=== PATIENT | male | born 1940 ===

== ENCOUNTER → 2017-12-08 | Outpatient (CLI) | payer MEDICARE | LOC: LAB 12:00 → LAB SHORT 12:00 → LAB FUT 11-30 10:40 | DX: R19.4 Change in bowel habit (principal) | CPT/HCPCS: 87015; 87045; 87046; 87205; 87899 ==

== ENCOUNTER → 2019-04-04 | Outpatient (CLI) | payer MEDICARE ==
[2019-04-04 19:32] LABS: Adenovirus F 40/41 Not Detected (NOT DETECT); Astrovirus Not Detected (NOT DETECT); Campylobacter Sp Not Detected (NOT DETECT); Cryptosporidium Not Detected (NOT DETECT); Cyclospora Cayetanensis Not Detected (NOT DETECT); E. Coli O157 Not Detected (NOT DETECT); Entamoeba Histolytica Not Detected (NOT DETECT); Enteroaggregative E. coli-EAEC Not Detected (NOT DETECT); Enteropathogenic E. coli-EPEC Not Detected (NOT DETECT); Enterotoxigenic E. coli-ETEC Not Detected (NOT DETECT); Giardia Lamblia Not Detected (NOT DETECT); Norovirus GI/GII Not Detected (NOT DETECT); Plesiomonas Shigelloides Not Detected (NOT DETECT); Rotavirus A Not Detected (NOT DETECT); Salmonella Sp Not Detected (NOT DETECT); Sapovirus Not Detected (NOT DETECT); Shiga Toxin-prod E. coli-STEC Not Detected (NOT DETECT); Shigella/Enteroin E. coli-EIEC Not Detected (NOT DETECT); Vibrio Cholerae Not Detected (NOT DETECT); Vibrio Sp Not Detected (NOT DETECT); Yersinia Enterocolitica Not Detected (NOT DETECT)
== END ==
LOC: LAB SHORT 14:34
PROVIDERS: Internal Medicine Gastroenterology
DX: R19.7 Diarrhea, unspecified (principal)
CPT/HCPCS: 0097U

== ENCOUNTER 2019-04-19 08:43 | Day surgery (SDC) | payer MEDICARE ==
[~2019-04-19] VITALS: Ht 167.6 cm; Wt 66.5 kg
[~2019-04-19 08:43] MED LIST: DONEPEZIL HCL10 MG PO; GABA800 PO; INSULANPEN SC; METF500 PO
--- NOTE | 2019-04-19 10:05 | NUR ---
Ambulatory in Day Surgery History, Chart, Medications and Allergies reviewed before start of procedure.Patient confirms NPO status and agrees with scheduled surgery. Patient states colon prep results clear.Lungs clear T/O to Auscultation. Patient States Post-Procedure ride home has been arranged WITH . PT HARD OF HEARING. AT BEDSIDE THROUGHOUT ADMIT TO HELP WITH HEALTH HX
--- NOTE | 2019-04-19 11:17 | NUR ---
04/19/19 1117 Jo Ann Curry History, Chart, Medications and Allergies reviewed before start of procedure. PATIENT CONFIRMS NPO STATUS AND AGREES WITH SCHEDULED PROCEDURE. MONITOR INTACT WITH CONTINUOUS PULSE OXIMETRY AND INTERMITTENT BP. O2 VIA N/C INTACT THROUGHOUT SEDATION/PROCEDURE. 3-LEAD EKG REVIEWED WITH PHYSICIAN PRIOR TO START OF PROCEDURE. PATIENT DETERMINED TO BE ASA APPROPRIATE FOR PROPOFOL SEDATION PRIOR TO START OF PROCEDURE BY DR. ALARCON.N
--- NOTE | 2019-04-19 11:48 | NUR ---
RECIEVED PATIENT FROM ENDO ROOM 1 RECIEVED REPORT FROM WILSON GERONIMO. VSS PATIENT TIRED BUT ARROUSABLE
--- NOTE | 2019-04-19 12:13 | NUR ---
Discharge instructions reviewed with patient. Patient verbalizes understanding. Copy given to patient to take home. Patient States Post-Procedure ride home has been arranged. Discharged via wheelchair to private car for ride home.
== END 2019-04-19 22:56 | disposition home or self-care (01) ==
LOC: ORSCMMR 08:43 → ORD 10:00 → ORSCMMR 22:56
PROVIDERS: Internal Medicine Gastroenterology
PROC: 0DBL8ZX Excision of Transverse Colon, Via Natural or Artificial Opening Endoscopic, Diagnostic (ICD-10-PCS; principal; 2019-04-19 10:00)
PROC: 0DBP8ZX Excision of Rectum, Via Natural or Artificial Opening Endoscopic, Diagnostic (ICD-10-PCS; 2019-04-19 10:00)
PROC: 0DBB8ZX Excision of Ileum, Via Natural or Artificial Opening Endoscopic, Diagnostic (ICD-10-PCS; 2019-04-19 10:00)
PROC: 0DBN8ZX Excision of Sigmoid Colon, Via Natural or Artificial Opening Endoscopic, Diagnostic (ICD-10-PCS; 2019-04-19 10:00)
PROC: 0DBK8ZX Excision of Ascending Colon, Via Natural or Artificial Opening Endoscopic, Diagnostic (ICD-10-PCS; 2019-04-19 10:00)
DX: R19.4 Change in bowel habit (principal); K63.5 Polyp of colon; K64.8 Other hemorrhoids; K57.30 Diverticulosis of large intestine without perforation or abscess without bleeding; E11.9 Type 2 diabetes mellitus without complications; F03.90 Unspecified dementia, unspecified severity, without behavioral disturbance, psychotic disturbance, mood disturbance, and anxiety; Z79.4 Long term (current) use of insulin; Z79.899 Other long term (current) drug therapy
CPT/HCPCS: 82947; 88305; J2704; J7120

== ENCOUNTER 2021-02-28 17:26 | Inpatient (IN) | payer MEDICARE ==
[~2021-02-28] VITALS: Ht 175.3 cm; Wt 61.4 kg
[2021-02-28 17:45] LABS: BASOPHILS PERCENT AUTO 0 % (0-2); EOSINOPHILS PERCENT AUTO 0 % (0-6); Hematocrit 42.3 % (37.0-53.0); Hemoglobin 14.5 g/dL (13.5-17.5); IMMATURE GRAN ABSOLUTE AUTO 0.01 K/mm3 (0.00-0.10); IMMATURE GRAN PERCENT AUTO 0 % (0-1); LYMPHOCYTES ABSOLUTE AUTO 1.35 K/mm3 (0.84-5.20); LYMPHOCYTES PERCENT AUTO 28 % (21-46); MONOCYTES ABSOLUTE AUTO 0.29 K/mm3 (0.16-1.47); MONOCYTES PERCENT AUTO 6 % (4-13); Mean Corpuscular HGB 31.6 pg (26.0-34.0); Mean Corpuscular HGB Conc 34.3 g/dL (31.5-36.5); Mean Corpuscular Volume 92 fL (80-100); Mean Platelet Volume 9.3 fL (9.1-12.4); NEUTROPHILS ABSOLUTE AUTO 3.26 K/mm3 (1.96-9.15); NEUTROPHILS PERCENT AUTO 66 % (41-73); Platelet Count 161 K/mm3 (150-400); RDW Coefficient Variation 12.2 % (11.7-14.2); RDW Standard Deviation 41.8 fL (35.1-46.3); Red Blood Cell Count 4.59 M/mm3 (4.30-5.90); White Blood Cell Count 4.91 K/mm3 (4.00-11.30)
[2021-02-28 17:45] LABS: Chloride (POC) 109 mmol/L (98-108); Glucose (ISTAT POC) 54 mg/dL (70-99); Hemoglobin (POC) 13.9 g/dL (13.5-17.5); Potassium (POC) 4.2 mmol/L (3.5-5.5); Sodium (POC) 142 mmol/L (135-148); Total CO2 (POC) 24 mmol/L (21-32)
[2021-02-28 18:05] LABS: Alanine Aminotransfer (ALT/SGP 34 U/L (12-78); Albumin, Blood 3.2 g/dL (3.4-5.0); Albumin/Globulin Ratio 0.8 (0.8-1.8); Alk Phos 59 U/L (50-136); Anion Gap 8 mmol/L (6-16); Aspartate Aminotrans (AST/SGOT 48 U/L (12-37); Bilirubin, Total 0.5 mg/dL (0.1-1.0); Blood Urea Nitrogen 25 mg/dL (8-24); CO2, Blood 23 mmol/L (21-32); Calcium, Blood 8.4 mg/dL (8.5-10.1); Chloride, Blood 110 mmol/L (98-108); Creatinine, Blood 1.04 mg/dL (0.60-1.20); Globulin, Blood 4.1 g/dL (2.2-4.0); Glomerular Filtration Rate >60 (60-); Glucose, Blood 54 mg/dL (70-99); Potassium, Blood 4.2 mmol/L (3.5-5.5); Sodium, Blood 141 mmol/L (136-145); Total Protein, Blood 7.3 g/dL (6.4-8.2)
[2021-02-28 18:07] LABS: Source, Urine Straight Cath
[2021-02-28 18:10] LABS: Bilirubin, Urine Neg (Neg); Blood, Urine 1+ (Neg); Glucose Qualitative, Urine 3+ (Neg); Ketones, Urine 2+ (Neg); Leukocyte Esterase, Urine Neg (Neg); Nitrite, Urine Neg (Neg); Protein, Urine 2+ (Neg); Urobilinogen, Urine NORM (Normal)
[2021-02-28 18:24] LABS: Appearance, Urine Clear (Clear); Color, Urine Pale Yellow (P-Yellow)
[2021-02-28 18:26] LABS: Amorphous Light (0-Heavy); Bacteria Rare /hpf; Mucus Light (0-Heavy); Squamous Epithelial Cells Rare /hpf (Few); White Blood Cells, Urine 0-2 /hpf (0-5)
[2021-02-28] MEDS ORDERED: QUETIAPINE FUMA25 MG PO (18:51)
[2021-02-28] MEDS ORDERED: HUMALOG100 UNIT/1 SC (18:51)
[2021-02-28] MEDS ORDERED: ZYPREXA2.5 MG PO (18:52)
[2021-02-28] MEDS ORDERED: SEROQUEL50 MG PO (18:56)
[2021-02-28 19:27] LABS: Influenza A, PCR NEGATIVE (NEGATIVE); Influenza B, PCR NEGATIVE (NEGATIVE); Resp Syncytial Virus, PCR NEGATIVE (NEGATIVE)
[2021-02-28 19:31] LABS: SARS-Cov-2 (COVID-19) PCR, MMC POSITIVE (NEGATIVE)
[2021-02-28 20:16] LABS: PCO2 Arterial 34.6 mmHg (35-45); PO2 Arterial 82.9 mmHg (80-100); pH Blood Arterial 7.43 (7.35-7.45)
--- NOTE | 2021-02-28 22:57 | NUR ---
CARE ASSUMPTION ASSUMED CARE OF PATIENT AT 2158. PT UNRESPONSIVE TO VERBAL COMMANDS, RESPONDS TO PAINFUL STIMULI. STIFFENS UP WITH REPOSITIONING. ON 15L NON REBREATHER SATS OVER 95%. BP STABLE. HR NSR 80'S. IN BED SLEEPING AT THIS MOMENT. D5W 1/2NS INFUSING AT 50ML/HR.
[2021-03-01 03:40] LABS: BASOPHILS PERCENT AUTO 0 % (0-2); EOSINOPHILS PERCENT AUTO 0 % (0-6); Hematocrit 42.2 % (37.0-53.0); Hemoglobin 13.9 g/dL (13.5-17.5); IMMATURE GRAN ABSOLUTE AUTO 0.02 K/mm3 (0.00-0.10); IMMATURE GRAN PERCENT AUTO 1 % (0-1); LYMPHOCYTES ABSOLUTE AUTO 0.43 K/mm3 (0.84-5.20); LYMPHOCYTES PERCENT AUTO 12 % (21-46); MONOCYTES PERCENT AUTO 6 % (4-13); Mean Corpuscular HGB 31.1 pg (26.0-34.0); Mean Corpuscular HGB Conc 32.9 g/dL (31.5-36.5); Mean Corpuscular Volume 94 fL (80-100); Mean Platelet Volume 9.4 fL (9.1-12.4); NEUTROPHILS ABSOLUTE AUTO 2.87 K/mm3 (1.96-9.15); NEUTROPHILS PERCENT AUTO 82 % (41-73); Platelet Count 153 K/mm3 (150-400); RDW Coefficient Variation 12.4 % (11.7-14.2); Red Blood Cell Count 4.47 M/mm3 (4.30-5.90); White Blood Cell Count 3.52 K/mm3 (4.00-11.30)
[2021-03-01 04:17] LABS: Alanine Aminotransfer (ALT/SGP 32 U/L (12-78); Albumin/Globulin Ratio 0.9 (0.8-1.8); Alk Phos 57 U/L (50-136); Anion Gap 7 mmol/L (6-16); Aspartate Aminotrans (AST/SGOT 47 U/L (12-37); Bilirubin, Total 0.4 mg/dL (0.1-1.0); Blood Urea Nitrogen 24 mg/dL (8-24); Bun/Creatinine Ratio 25.4 (12.0-20.0); CO2, Blood 27 mmol/L (21-32); Chloride, Blood 108 mmol/L (98-108); Creatinine, Blood 0.95 mg/dL (0.60-1.20); Globulin, Blood 3.3 g/dL (2.2-4.0); Glomerular Filtration Rate >60 (60-); Glucose, Blood 312 mg/dL (70-99); Potassium, Blood 5.4 mmol/L (3.5-5.5); Sodium, Blood 142 mmol/L (136-145); Total Protein, Blood 6.3 g/dL (6.4-8.2)
--- NOTE | 2021-03-01 07:38 | NUR ---
SHIFT SUMMARY PT MENTATION IMPROVED SINCE ADMISSION. INITIALLY UNRESPONSIVE TO VERBAL COMMANDS, ONLY RESPONSIVE TO PHSYICAL STIMULI. STUCK IN BED NOT MOVING BESIDES ARMS. ATTEMPTED TO GET OUT OF BED AT 0650. PT NOT ABLE TO HOLD CONVERSATIONS BUT WITH SPEAK IN GARBLED SENTENCES. HR NSR 100. PT NPO. BP STABLE. ON 12L HIGH JOÃO MAINTAINING SATS OVER 93%. IN BED SLEEPING WITH CALL ALARM AT SIDE
--- NOTE | 2021-03-01 18:45 | NUR ---
END OF SHIFT SUMMARY: PATIENT WAS VERY CONFUSED, TO WHICH WE ORDER ONE TIME DOSE OF SEROQUEL, AND PRN Q4 OLANZAPINE WAS GIVEN TWICE TODAY. AFTER A LARGER AMOUNT OF AGITATION WHILE GIVING THOSE MEDS PATIENT CALMED DOWN, CURRENLTY SLEEPING WITH 5L NC SPO2 AT 94%. STILL NPO AWAITING SWALLOW EVAL. COVERAGE FOR EVENING GLUCOSE GIVEN. WAS AT THE BEDSIDE MOST THE DAY UNSURE IF BETTER OR WORSE. DENIES CHEST PAIN, VERY HARD TO VERBALIZE ANY CONCERNS, MORE THAN Q 2 TURNS PROVIDED. BEDREST RECOMMENDED EXTREMELY WEAK AT THIS TIME. WILL CONTINUE TO MONITOR.
[2021-03-02 03:47] LABS: BASOPHILS PERCENT AUTO 0 % (0-2); EOSINOPHILS PERCENT AUTO 0 % (0-6); Hemoglobin 12.8 g/dL (13.5-17.5); IMMATURE GRAN ABSOLUTE AUTO 0.01 K/mm3 (0.00-0.10); IMMATURE GRAN PERCENT AUTO 0 % (0-1); LYMPHOCYTES ABSOLUTE AUTO 0.45 K/mm3 (0.84-5.20); LYMPHOCYTES PERCENT AUTO 19 % (21-46); MONOCYTES ABSOLUTE AUTO 0.23 K/mm3 (0.16-1.47); MONOCYTES PERCENT AUTO 10 % (4-13); Mean Corpuscular HGB 31.4 pg (26.0-34.0); Mean Corpuscular HGB Conc 33.7 g/dL (31.5-36.5); Mean Corpuscular Volume 93 fL (80-100); Mean Platelet Volume 9.6 fL (9.1-12.4); NEUTROPHILS ABSOLUTE AUTO 1.73 K/mm3 (1.96-9.15); NEUTROPHILS PERCENT AUTO 72 % (41-73); Platelet Count 169 K/mm3 (150-400); RDW Coefficient Variation 12.3 % (11.7-14.2); RDW Standard Deviation 42.6 fL (35.1-46.3); Red Blood Cell Count 4.07 M/mm3 (4.30-5.90); White Blood Cell Count 2.42 K/mm3 (4.00-11.30)
[2021-03-02 04:13] LABS: Alanine Aminotransfer (ALT/SGP 31 U/L (12-78); Albumin, Blood 2.6 g/dL (3.4-5.0); Albumin/Globulin Ratio 0.7 (0.8-1.8); Alk Phos 54 U/L (50-136); Anion Gap 6 mmol/L (6-16); Aspartate Aminotrans (AST/SGOT 36 U/L (12-37); Bilirubin, Total 0.5 mg/dL (0.1-1.0); Blood Urea Nitrogen 39 mg/dL (8-24); Bun/Creatinine Ratio 50.7 (12.0-20.0); CO2, Blood 24 mmol/L (21-32); Calcium, Blood 8.1 mg/dL (8.5-10.1); Chloride, Blood 115 mmol/L (98-108); Creatinine, Blood 0.77 mg/dL (0.60-1.20); Globulin, Blood 3.8 g/dL (2.2-4.0); Glomerular Filtration Rate >60 (60-); Glucose, Blood 341 mg/dL (70-99); Potassium, Blood 4.2 mmol/L (3.5-5.5); Sodium, Blood 145 mmol/L (136-145); Total Protein, Blood 6.4 g/dL (6.4-8.2)
--- NOTE | 2021-03-02 05:09 | NUR ---
SHIFT SUMMARY NO ACUTE EVENTS THIS SHIFT. PT REMAINS CONFUSED AND UNABLE TO COMMUNICATE. WILL MUMBLE RANDOM WORDS AT TIMES. HR NSR. BP STABLE. ON 40L 70% FIO2 AIRVO MAINTAINING SATS OVER 94%. Q2 POSITION CHANGES. WILL RESIST THE Q2 TURNS. INCONTINENT. NEEDS TO BE FREQUENTLY CHANGED. REDNESS ON SACRUM. ASLEEP THROUGHOUT MOST OF NIGHT. IN BED SLEEPING WITH CALL ALARM ON SIDE, WILL CONTINUE TO MONITOR UNTIL REPORT GIVEN TO DAYSHIFT RN
--- NOTE | 2021-03-02 17:58 | NUR ---
UPON INSPECTION OF PATIENT, NOTICED BILATERALY FACIAL LEFT > R INFORMED ONCALL [facility] PROVIDER. DR. Jacky BARAKAT. INFROMED CT ORDERED, PREVIOUS CT FROM 22 NO ACUTE ABNORMALITIES. AIRVO IN PLACE, SHE IS TO INSPECT. UPON INSPECTION FROM DR BARAKAT CANCEL CT, WILL OBSERVE AND MEDICATION REVIEW.
--- NOTE | 2021-03-02 18:19 | NUR ---
END OF SHIFT SUMMARY: PATIENT WAS SLEEPING MOST OF THE DAY, CBGS HAVE BEEN HIGH 200'S TO 300'S, MEDICATING PER EMAR, PATIENT IS ALERT AT TIME BUT DOES NOT MAKE COMPREHENSIBLE SPEECH, IS UNABLE TO FOLLOW COMMANDS, MOVES ALL EXTREMS, MAIL SORTING SUPERVISOR STRENGTH BILATERALLY EQUAL, SINUS RHYTHM NO GAURDING OF THE CHEST, AWAKES TO PAIN AND VERBAL STIMULI. WILL TRACK WITH EYES, WHICH ARE BILATERAL. AIRVO AT 40L AT 65%, SPO2 93-95%. DOES OCCASSIONALLY GET AGITATED, BUT VERY MUCH LESS THAN PRIOR DAY. VERY MINIMAL CHANGE IN FACIAL PRESENTATION [facility] AND [facility], SHE WILL REVIEW MEDICATION. CANCELLED CT, CLEAR CT ON 02/28/2021. WILL CONTINUE TO MONITOR.
--- NOTE | 2021-03-02 18:36 | NUR ---
[facility]CENET HAS BEEN MOVED Q
[2021-03-03 04:12] LABS: BASOPHILS PERCENT AUTO 0 % (0-2); EOSINOPHILS PERCENT AUTO 0 % (0-6); Hematocrit 39.7 % (37.0-53.0); Hemoglobin 13.4 g/dL (13.5-17.5); IMMATURE GRAN ABSOLUTE AUTO 0.01 K/mm3 (0.00-0.10); IMMATURE GRAN PERCENT AUTO 0 % (0-1); LYMPHOCYTES ABSOLUTE AUTO 0.26 K/mm3 (0.84-5.20); LYMPHOCYTES PERCENT AUTO 8 % (21-46); MONOCYTES PERCENT AUTO 6 % (4-13); Mean Corpuscular HGB 31.6 pg (26.0-34.0); Mean Corpuscular HGB Conc 33.8 g/dL (31.5-36.5); Mean Corpuscular Volume 94 fL (80-100); Mean Platelet Volume 9.8 fL (9.1-12.4); NEUTROPHILS ABSOLUTE AUTO 2.99 K/mm3 (1.96-9.15); NEUTROPHILS PERCENT AUTO 86 % (41-73); Platelet Count 187 K/mm3 (150-400); RDW Coefficient Variation 12.5 % (11.7-14.2); RDW Standard Deviation 43.2 fL (35.1-46.3); Red Blood Cell Count 4.24 M/mm3 (4.30-5.90); White Blood Cell Count 3.46 K/mm3 (4.00-11.30)
[2021-03-03 04:33] LABS: Alanine Aminotransfer (ALT/SGP 29 U/L (12-78); Albumin, Blood 2.5 g/dL (3.4-5.0); Albumin/Globulin Ratio 0.7 (0.8-1.8); Alk Phos 54 U/L (50-136); Anion Gap 7 mmol/L (6-16); Aspartate Aminotrans (AST/SGOT 21 U/L (12-37); Bilirubin, Total 0.4 mg/dL (0.1-1.0); Blood Urea Nitrogen 36 mg/dL (8-24); Bun/Creatinine Ratio 48.1 (12.0-20.0); CO2, Blood 22 mmol/L (21-32); Calcium, Blood 8.2 mg/dL (8.5-10.1); Chloride, Blood 120 mmol/L (98-108); Creatinine, Blood 0.75 mg/dL (0.60-1.20); Globulin, Blood 3.7 g/dL (2.2-4.0); Glomerular Filtration Rate >60 (60-); Glucose, Blood 331 mg/dL (70-99); Potassium, Blood 4.2 mmol/L (3.5-5.5); Sodium, Blood 149 mmol/L (136-145); Total Protein, Blood 6.2 g/dL (6.4-8.2)
--- NOTE | 2021-03-03 06:27 | NUR ---
SHIFT SUMMARY PATIENT ALERT AND ORIENTED TO SELF BY NAME ONLY. WILL TRACK AND LOOK AT STAFF BUT DOES NOT COMMUNICATE NEEDS. PATIENT MUMBLES WORDS INCOHERIENTLY AT TIMES. UNABLE TO FOLLOW COMMANDS. PATIENT IS HAVING OCCASIONAL JERKING MOVEMENTS IN BILATERAL UPPER EXTREMITITES. HOSPITALIST AWARE AND NURSE NOTIFY IN ORDERS TO HOLD ANTIPSYCH MEDICATIONS FOR FURTHER EVALUATIONS TO BE MADE BY DAY SHIFT. REMAINS ON AIRVO AT 40L, 65% FIO2 WITH O2 SATURATIONS ABOVE 90%. ALL OTHER VITALS STABLE. BED ALARM IN PLACE FOR PATIENT SAFETY. NO OTHER SIGNIFICANT CHANGES, WILL REPORT TO DAY SHIFT RN.
--- NOTE | 2021-03-03 08:00 | NUR ---
INITIAL ASSESSMENT: Patient is lying in bed with his eyes open, he is able to track staff. He is not following directions. He is non-verbal this AM. With oral care he is grimacing. HRR. LS Dim T/O, biox 87% on 40L 50% FIO2, FIO2 increased to 71%-oxygen saturations improved to 90%. Oral care done. Gag and cough present, pt has a coarse NPC. BT+. PPP. VSS. 1/2 NS started at 100 ml/hr. Patient reposistioned. Bed alarm on for safety. Call light in reach. Will continue to monitor.
--- NOTE | 2021-03-03 10:43 | NUR ---
This morning I called and spoke with patient's Loraine [phone] and granddaughter Karley [phone] (POA). Patient's states that Karley lives with them and provides additional support at home. Patient's Daughter Amara Wyman is also POA [phone]. The family prefers Karley be the main point of contact regarding the patient and his care. Patient was mostly independent prior to admit, but non-verbal. Patient walked independently prior to admit and does not own any DME. There are stairs to the enterance of the home. The patient does not drive anymore and patient's , daughter, or granddaughter help with transportation. There is no preference for home health services or [facility] facility. Although, patient's will prefer the patient to return home. I did ask the patient's about the possibility of memory care and she states she would decline that as well, she prefers the patient to remain in their home and that he has lots of support there. She states patient ate independently until he fell ill within the past week, and she or her granddaughter Karley would help feed him.
--- NOTE | 2021-03-03 16:17 | NUR ---
Update: Patient is lying in bed awake. VSS. Dr Porter ordered an MRI of the heat W/O contrast, plan to do this around 1730. Bed alarm on for safety. Call light in reach. Will continue to monitor.
--- NOTE | 2021-03-03 16:32 | NUR ---
Case Conference Note Spoke with Pt's Primary RN Liz and discussed case. Pt requiring significant oxygen support and currently requiring AIRVO. Attempts to wean Pt down to high flow NC unsuccessful at this time. Will continue attempts as appropriate. Pt is less verbally responsive and MD has ordered MRI. Speech Therapy also has been ordered. Called and spoke with Pt's granddaughter Rima ([phone]). According to notes Rima is main customer contact sales associate and is Pt and Pt's spouse's primary caregiver. Rima and Pt's daughter are POA according to notes. Spoke with Rima and provided update on plan of care, including significant O2 support and plan for MRI. Gentle education on disease process of dementia and the importance of planning for the future. Rima reports educating her self and preparing for the future of Pt's dementia and the possibility of needing hospice at somepoint. Offered therapeutic listening and answered questions. Rima states family is hoping for the best but has a plan for the worse. Rima expresses appreciation and reports no other concerns at this time. Palliative Care will remain available for supportive and therapeutic visits.
--- NOTE | 2021-03-03 18:48 | NUR ---
Summary: Patient is here with COVID PNA. He has been awkake, non-verbal, and not following commands. He has been very stiff with repositioning and making some involuntary jerking movements with head and BUE. All psych meds are on hold at this time. Patient is not able to follow commands thus he has been NPO until speech therapy can come and evaluate him. He is on the AIRVO heated high flow NC 40L FIO2 has gone between 55% and 70% T/O the shift. He went down for an MRI of the head, awaiting results. VSS T/O the shift. He has been bedbound today, repositioned Q2. Oral care done via suction swabs. No other changes this shift. Will report to oncoming RN.
[2021-03-04 03:17] LABS: BASOPHILS PERCENT AUTO 0 % (0-2); EOSINOPHILS PERCENT AUTO 0 % (0-6); Hematocrit 43.4 % (37.0-53.0); Hemoglobin 14.3 g/dL (13.5-17.5); IMMATURE GRAN ABSOLUTE AUTO 0.03 K/mm3 (0.00-0.10); IMMATURE GRAN PERCENT AUTO 0 % (0-1); LYMPHOCYTES ABSOLUTE AUTO 0.32 K/mm3 (0.84-5.20); LYMPHOCYTES PERCENT AUTO 5 % (21-46); MONOCYTES ABSOLUTE AUTO 0.27 K/mm3 (0.16-1.47); MONOCYTES PERCENT AUTO 4 % (4-13); Mean Corpuscular HGB 31.6 pg (26.0-34.0); Mean Corpuscular HGB Conc 32.9 g/dL (31.5-36.5); Mean Corpuscular Volume 96 fL (80-100); Mean Platelet Volume 9.4 fL (9.1-12.4); NEUTROPHILS ABSOLUTE AUTO 6.13 K/mm3 (1.96-9.15); NEUTROPHILS PERCENT AUTO 91 % (41-73); Platelet Count 200 K/mm3 (150-400); RDW Coefficient Variation 12.4 % (11.7-14.2); RDW Standard Deviation 44.4 fL (35.1-46.3); Red Blood Cell Count 4.52 M/mm3 (4.30-5.90); White Blood Cell Count 6.75 K/mm3 (4.00-11.30)
[2021-03-04 03:39] LABS: Albumin, Blood 2.8 g/dL (3.4-5.0); Anion Gap 2 mmol/L (6-16); Blood Urea Nitrogen 31 mg/dL (8-24); Bun/Creatinine Ratio 39.5 (12.0-20.0); CO2, Blood 29 mmol/L (21-32); Calcium, Blood 8.2 mg/dL (8.5-10.1); Chloride, Blood 120 mmol/L (98-108); Creatinine, Blood 0.78 mg/dL (0.60-1.20); Glomerular Filtration Rate >60 (60-); Glucose, Blood 225 mg/dL (70-99); Magnesium, Blood 2.5 mg/dL (1.6-2.4); Phosphorus, Blood 3.4 mg/dL (2.5-4.9); Potassium, Blood 4.2 mmol/L (3.5-5.5); Sodium, Blood 151 mmol/L (136-145)
--- NOTE | 2021-03-04 04:36 | NUR ---
SHIFT SUMMARY PATIENT ALERT AND REMAINS ORIENTED TO SELF ONLY. WILL TRACK STAFF WITH EYES AND WILL LOOK AT STAFF WHEN HIS NAME IS CALLED. NONVERBAL AT THIS TIME. RIGID AND GRIMACES DURING REPOSITIONING. UNABLE TO FOLLOW COMMANDS. OCCASIONAL JERKING MOVEMENTS NOTED IN UPPER EXTREMITIES. PSYCH MEDS CONTINUE TO BE HELD AT THIS TIME. VSS. REMAINS ON AIRVO AT 40L 65% FIO2 WITH SATS ABOVE 90%. BED ALARM IN PLACE FOR PATIENT SAFETY. NO OTHER SIGNIFICANT CHANGES THIS SHIFT. WILL REPORT TO DAY SHIFT RN.
--- NOTE | 2021-03-04 11:39 | NUR ---
Pt resting in bed with GRAZYNA Hill at bedside inserting Power Everly. Spoke with Primary RN and discussed case. ST evaulated Pt and is recommending NPO. Spoke with Dr Porter and discussed case. Called and spoke with Pt's granddaughter Rima. Provided update and reviewed ST evaluation. Rima reports being in agreement to give Pt more time and to revisit Pt's condition tomorrow. Rima expresses appreciation and reports no other concerns at this time. Palliative Care will remain available.
[2021-03-04 12:02] LABS: Albumin, Blood 2.7 g/dL (3.4-5.0); Anion Gap 5 mmol/L (6-16); Blood Urea Nitrogen 27 mg/dL (8-24); Bun/Creatinine Ratio 39.8 (12.0-20.0); CO2, Blood 25 mmol/L (21-32); Calcium, Blood 7.8 mg/dL (8.5-10.1); Chloride, Blood 118 mmol/L (98-108); Creatinine, Blood 0.68 mg/dL (0.60-1.20); Glomerular Filtration Rate >60 (60-); Glucose, Blood 197 mg/dL (70-99); Phosphorus, Blood 2.7 mg/dL (2.5-4.9); Potassium, Blood 3.7 mmol/L (3.5-5.5); Sodium, Blood 148 mmol/L (136-145)
[2021-03-04 16:35] LABS: Albumin, Blood 2.5 g/dL (3.4-5.0); Anion Gap 7 mmol/L (6-16); Blood Urea Nitrogen 24 mg/dL (8-24); Bun/Creatinine Ratio 42.3 (12.0-20.0); CO2, Blood 25 mmol/L (21-32); Calcium, Blood 7.3 mg/dL (8.5-10.1); Chloride, Blood 116 mmol/L (98-108); Creatinine, Blood 0.57 mg/dL (0.60-1.20); Glomerular Filtration Rate >60 (60-); Glucose, Blood 179 mg/dL (70-99); Phosphorus, Blood 2.5 mg/dL (2.5-4.9); Potassium, Blood 3.4 mmol/L (3.5-5.5); Sodium, Blood 148 mmol/L (136-145)
--- NOTE | 2021-03-04 18:45 | NUR ---
END OF SHIFT SUMMARY: PATIENT REMAINS UNCHANGED WITH LITTLE CHANGE IN MENTATION DID SPEAK A FEW INCOMPREHENSIBLE WORDS, BUT NOTHING MORE. PATIENT WAS GIVEN 2 BAGS OF 1/2NS FROM NIGHT TO THE END OF DAY, DUE TO HYPONATREMIA. PATIENT FAILED SPEECH, HAS BEEN NPO FOR QUITE SOME TIME, AND FAMILY ENDORSES PATIENTS DESIRE TO NOT HAVE A FEEDING TUBE. Q2 TURNS, PATINET RIGID AND RESISTANT TO MOVEMENT. CONDOM CATH IN PLACE, WITH GOOD OUTPUT, CBG LAST WAS 147. NO Q6 COVERAGE. STILL HAVING THE JERKY MOVEMENTS, PROVIDER ENDORSED NEGATIVE MRI. Q4 ORAL CARE.
--- NOTE | 2021-03-05 05:21 | NUR ---
SHIFT SUMMARY PATIENT ALERT AND UNABLE TO ASSESS ORIENTATION DOES NOT RESPOND TO QUESTIONS. NO VERBAL RESPONSE AT ALL BUT WILL TRACK STAFF WITH EYES AND MOVES ALL EXTREMETIES. GRIMACES WITH ANY ORAL CARE OR TURNS. NOT FOLLOWING COMMANDS. TOOK OF OXYGEN A FEW TIMES OVERNIGHT BUT HAD GOOD RECOVERY TIME. CURRENTLY ON AIRVO 40L 90% FIO2 UP FROM 40L 65% AT START OF SHIFT. SEEMS CONGESTED AND RN WAS UNABLE TO GET PATIENT TO BLOW NOSE. PRODUCTIVE COUGH AT TIMES. SR IN THE 90'S-LOW 100'S. VSS. Q2H ORAL CARE AND TURNS PERFORMED. CONDOM CATH IN PLACE DRAINING TO GRAVITY WITH GOOD OUTPUT. REMAINS NPO UNTIL MENTATION CLEARS A BIT AND IS ABLE TO FOLLOW COMMANDS. NO ACUTE CONCERNS AT THIS TIME. WILL CONTINUE PLAN OF CARE UNTIL REPORT GIVEN TO DAYSHIFT RN.
[2021-03-05 05:26] LABS: BASOPHILS ABSOLUTE AUTO 0.01 K/mm3 (0.00-0.23); BASOPHILS PERCENT AUTO 0 % (0-2); EOSINOPHILS PERCENT AUTO 0 % (0-6); Hemoglobin 13.5 g/dL (13.5-17.5); IMMATURE GRAN ABSOLUTE AUTO 0.05 K/mm3 (0.00-0.10); IMMATURE GRAN PERCENT AUTO 1 % (0-1); LYMPHOCYTES ABSOLUTE AUTO 0.23 K/mm3 (0.84-5.20); LYMPHOCYTES PERCENT AUTO 3 % (21-46); MONOCYTES ABSOLUTE AUTO 0.26 K/mm3 (0.16-1.47); MONOCYTES PERCENT AUTO 3 % (4-13); Mean Corpuscular HGB 31.7 pg (26.0-34.0); Mean Corpuscular HGB Conc 34.6 g/dL (31.5-36.5); Mean Corpuscular Volume 92 fL (80-100); Mean Platelet Volume 9.5 fL (9.1-12.4); NEUTROPHILS ABSOLUTE AUTO 7.22 K/mm3 (1.96-9.15); NEUTROPHILS PERCENT AUTO 93 % (41-73); Platelet Count 210 K/mm3 (150-400); RDW Coefficient Variation 12.1 % (11.7-14.2); RDW Standard Deviation 41.1 fL (35.1-46.3); Red Blood Cell Count 4.26 M/mm3 (4.30-5.90); White Blood Cell Count 7.77 K/mm3 (4.00-11.30)
[2021-03-05 05:52] LABS: Albumin, Blood 2.6 g/dL (3.4-5.0); Anion Gap 7 mmol/L (6-16); Blood Urea Nitrogen 25 mg/dL (8-24); Bun/Creatinine Ratio 39.3 (12.0-20.0); CO2, Blood 24 mmol/L (21-32); Calcium, Blood 7.4 mg/dL (8.5-10.1); Chloride, Blood 115 mmol/L (98-108); Creatinine, Blood 0.64 mg/dL (0.60-1.20); Glomerular Filtration Rate >60 (60-); Glucose, Blood 211 mg/dL (70-99); Magnesium, Blood 2.5 mg/dL (1.6-2.4); Phosphorus, Blood 2.3 mg/dL (2.5-4.9); Potassium, Blood 4.1 mmol/L (3.5-5.5); Sodium, Blood 146 mmol/L (136-145)
--- NOTE | 2021-03-05 09:07 | NUR ---
Case Conference Note Received call back from Pt's granddaughter Rima. She reports family is in agreement to move forward with comfort measures only. She reports family will be in as soon as they can. Spoke with Dr Porter and discussed case. Placed comfort care order, comfort care order set, D/C maintenance medications per V/O from Dr Porter. Order Ativan 1-2mg IV Q2 hours PRN for anxiety per V/O from Dr Porter. Palliative Care will F/U with family and Pt for symptom management and supportive visit.
--- NOTE | 2021-03-05 10:47 | NUR ---
FAMILY AT THE BEDSIDE AND STARTING TO TITRATE THE FIO2 DOWN ON THE AIRVO, PATIENT RESTING IN BED MEDICATING PER EMAR. FAMILY EDUCATED BY MYSELF AND JIGAR GERONIMO FROM PALLIATIVE CARE. NATASHA GERONIMO AWARE OF SITUATION AND HAS BEEN CHECKING PERIODICALLY. I ENSURED FAMILY WAS READY FOR RN TO START THE TITRATION DOWN TO HOPEFULLY SWITCH TO HFNC. WILL CONTINUE TO MONITOR.
--- NOTE | 2021-03-05 11:41 | NUR ---
Pt resting in bed with family at bedside. Provided gentle discussion regarding comfort care and medications available for comfort. Offered therapeutic listening and emotional support. Spoke with Primary RN Kevin and discussed case. Palliative Care will remain available.
--- NOTE | 2021-03-05 11:56 | NUR ---
PATIENT HAS BEEN TITRATED OFF THE AIRVO AND IS CURRENTLY ON 6LC VIA NC. RR LOW 20'S WILL CONTINUE TO OBSERVE AND MEDICATE PER EMAR, FAMILY STILL AT BEDSIDE COMFORT CARE CART IN THE ROOM. WILL CONTINUE TO MONITOR.
--- NOTE | 2021-03-05 15:04 | NUR ---
Spiritual care visit conducted. Pt's RN, Kevin, informs me that pt is on comfort care and medical issues that led to the families decision. I see that the pt's rm is full of family members so, I visit. Family members tell me about patient's current status and then I conduct a life review of pt. Family share some memories but spend more time hovering around words like pt's orneriness, his huge heart, his kindness and his mental briliance. I also learn of his no shinto preference and his belief in aliens. I normalize their experience, compliment their love and presence in the rm, and provide therapeutic listening, anticipitory grief support and gentle vp & general counsel. Family respond well and show signs of being comforted. I will continue to remain available to patient and family.
--- NOTE | 2021-03-05 17:10 | NUR ---
SHIFT SUMMARY PATIENT IS A COMFORT CARE PATIENT. PATIENT WAS A RECENT TRANSFER FROM U 02. PATIENT IS ACCOMPANIED BY FAMILY TO ROOM 313. PATIENT WAS TRANSFERRED AT 1600. PATIENT IS BEING MEDICATED PER EMAR FOR SYMPTOMS. WILL MONITOR UNTIL SHIFT CHANGE.
--- NOTE | 2021-03-05 17:12 | NUR ---
DISCAHRGE SUMMARY: VASILIY WAS TRANSFERRED VIA BED 1 RN YAON 2 RECHS TO ROOM 313 ONCOMING GRAZYNA LAMBERT. PATIENT WAS REPOSITIONED, CHANGED BRIEF, AND DID NOT NEED MORPHINE AT THIS TIME. VASILIY HAS BEEN COMFORT CARE SINCE FAMILY ARRIVAL AT 10, AND HAS BEEN OFF THE NC FOR ATLEAST 3 HOURS. VASLIIY WAS MEDICATED PER EMAR. PATIENTS FAMILY INFORMED AND WERE ABLE TO FIND THE ROOM DURING TRANSFER OF BEDS THEY WERE PRESENT. UNABLE TO ACCESS CP BUT VASILIY LOOKED VERY COMFORTABLE.
--- NOTE | 2021-03-06 05:14 | NUR ---
SHIFT SUMMARY NO ACUTE EVENT IN THIS SHIFT PT CONT IV ABT NO ADVANCE REACTION NOTED LUNGS SOUNDS CLEAR ABLE TO TALK WITH NO EXHAUSTION PITTING EDEMA + 1 STILL EVIDENT TO FUNMILAYO LOWER EXTREAMITY PT CONT LASIX THERAPY
--- NOTE | 2021-03-06 06:19 | NUR ---
COMFORT CARE PATIENT CONT COMFORT CARE FAMILY BY THE BEDSIDE PAIN MEDICATION ADM X1 TURN AND REPOSTION Q 2HRS.
--- NOTE | 2021-03-06 17:35 | NUR ---
COMFORT CARE SHIFT REPORT PATIENT HAS BEEN RESTING COMFORTABLY MOST OF SHIFT. PATIENT MEDICATED PER EMAR FOR RESTLESSNESS, PAIN AND OTHER SYMPTOMS REPORTED BY FAMILY IN ROOM. PATIENT SUCTION HAS BEEN SET UP IN ROOM AND USED ONCE. PATIENT HAS BEEN TURNED AND REPOSITIONED Q2. NO ACUTE EVENTS THIS SHIFT. CONDOM CATH REPLACED THIS SHIFT. WILL MONITOR UNTIL SHIFT CHANGE.
--- NOTE | 2021-03-06 20:00 | NUR ---
COMFORT CARE FAMILY AT BEDSIDE. STATING APPEARS UNCOMFORTABLE OR PAINFUL. MEDICATED PER EMAR. SUCTIONED. REPOSITIONED. LINEN CHANGE. NEW CONDOM CATH PLACED. BED IN LOWEST. NO OTHER NEEDS AT THIS TIME. APPEARS TO BE RESTING.
--- NOTE | 2021-03-07 | NUR ---
COMFORT CARE FAMILY AT BEDSIDE. FAMILY STATES PATIENT IS DOING WELL. NO NEEDS AT THIS TIME. BED IN LOWEST.
--- NOTE | 2021-03-07 05:09 | NUR ---
SHIFT SUMMARY NON RESPONSIVE TO PAIN/DISCOMFORT. MEDICATED FOR PAIN/SECRETIONS. REPOSITIONED PERIODICALLY PER FAMILY REQUEST OVERNIGHT. CONDOM CATH IN PLACE. NO ACUTE CHANGES NOTED. FAMILY REMAINED AT BEDSIDE OVERNIGHT. BED IN [facility]. REPORT TO ONCOMING RN.
--- NOTE | 2021-03-07 11:01 | NUR ---
ASSUMED CARE AND COMFORT OF THIS PATIENT. FAMILY AT BEDSIDE. SPOUSE CONCERNED THAT PATIENT NOT ABLE TO LET HER KNOW IF HE IS IN PAIN. PATIENT APPEARS TO BE RESTING COMFORTABLY. BREATHING EVEN AND UNLABORED. COVERS REMOVED PAITENT FEELS HOT TO TOUCH. WILL REMAIN AVAILABLE FOR THIS PATIENT AND FAMILY PATIENT TRANSITIONS. CLAIR DOUGHERTY RN
--- NOTE | 2021-03-07 11:20 | NUR ---
FAMILY CONCERNED THAT PATIENT IS MOANING AND THRASHING APPEARS ANXIOUS. ATIVAN PROVIDED IV TO PATIENT AND APPEARS MUCH MORE COMFORTABLE. CLAIR DOUGHERTY RN
--- NOTE | 2021-03-07 13:40 | NUR ---
Comfort care visit after case conference with RN and review of chart. Pt surrounded by multiple family members. RN had just medicated for reported thrashing and pt appears very comfortable now. Discussed s/s of dying process with family. They are supportive of each other in room. Will continue daily comfort care checks.
--- NOTE | 2021-03-07 20:00 | NUR ---
COMFORT CARE APPEARS TO BE RESTING WITHOUT ANY NEEDS AT THIS TIME. REPOSITIONED /c PILLOWS UNDER ARMS AND LEGS. REFRESHED ATTENDS. CONDOM CATH REMAINS IN PLACE; MINIMAL DRAINAGE. FAMILY AT BEDSIDE. BED IN LOWEST.
--- NOTE | 2021-03-08 02:00 | NUR ---
COMFORT CARE APPEARS TO BE RESTING WITHOUT ANY NEEDS. FAMILY STATES APPEARS COMFORTABLE AND DOES NOT NEED TO BE REPOSITIONED AT THIS TIME. BED IN LOWEST. CONDOM CATH DRAINING TO GRAVITY
--- NOTE | 2021-03-08 04:40 | NUR ---
SHIFT SUMMARY REMAINS NON-RESPONSIVE TO PAIN/DISCOMFORT. REPOSITIONED PER FAMILY REQUEST. CONDOM CATH REMAINS IN PLACE AND IS DRAINING TO GRAVITY. MEDICATED FOR PAIN X1. RESPIRATIONS HEAVY. AFTER ADMINISTRATION PATIENT SIGHED AND APPEARED MUCH MORE COMFORTABLE. FAMILY APPRECIATIVE OF CHANGE. NO OTHER ACUTE CHANGES NOTED. BED REMAINS IN LOWEST POSITION. REPORT TO ONCOMING RN.
--- NOTE | 2021-03-08 06:00 | NUR ---
COMFORT CARE APPEARS TO BE RESTING WITHOUT ANY NEEDS. SHALLOW BREATHS NOTED. FAMILY AT BEDSIDE. BED IN LOWEST POSITION. CALL LIGHT IN REACH
--- NOTE | 2021-03-08 09:45 | NUR ---
Comfort care visit made. Pt unresponsive to voice or touch at present. He had just been medicated for discomfort and appears to be resting peacefully now. Skin warm and moist to touch. Kim and at bedside. Kim had just washed his face and applied lotion. She cont to check his blood sugars to report to family OOT. We discussed that with no PO intake and actively dying that blood glucose readings will not be normal or have any bearing on his comfort/status at this time. S/S to anticipate discussed. Pt has not had PO intake for 3-4 days per daughter. Discussed that he may go 7-14 days without fluids during EOL process due to daughter's expressed surprise that pt is "still with us". Pt appears to be actively dying at this time. Resp sl labored. I did not note any nonverbal indicators of pain or distress. Palliative Care will plan for daily visits for s/s assessment/management and support.
--- NOTE | 2021-03-08 17:45 | NUR ---
DAY SHIFT SUMMARY 80 YEAR OLD COMFORT CARE PT WITH COVID. FAMILY PRESENT IN ROOM THROUGHOUT DAY. BED BATH PERFORMED AND MEDICATED PER EMAR FOR COMFORT. FAMILY IS ORIENTED TO ROOM AND CALL LIGHT.
[2021-03-08] MEDS ORDERED: Seroquel25 MG PO (22:42)
--- NOTE | 2021-03-09 04:58 | NUR ---
SHIFT SUMMARY PT REMAINED UNRESPONSIVE. FAMILY REPORTS SOME JAW CLENCHING AND REQUESTED PAIN MEDICATION X 1 FOR PT. OTHERWISE PT APPEARED TO REST COMFORTABLY THROUGHOUT THE NIGHT. CONDOM CATH IN PLACE. FAMILY AT BEDSIDE. WILL CONTINUE TO MONITOR.
--- NOTE | 2021-03-09 06:20 | NUR ---
FINAL DISCHARGE THIS RN CALLED TO ROOM BY TYRESE. FAMILY HAD CALLED PT HAD APPEARED TO BE NO LONGER BREATHING. UPON ASSESSMENT NO HEART OF LUNG SOUNDS COULD BE HEARD OR FELT. VERIFIED WITH LELAND Latham RN. AND GRAND DAUGHTER AT BEDSIDE. DAUGHTER CALLED BY GRAND DAUGHTER AND IS ON HER WAY IN. FAMILY DECLINED PASTORAL CARE. FAMILY HAS NOT PICKED OUT A MORTUARY SO WAS PROVIDED A LIST BY [employer] DEVELOPER LELAND. [employer] DEVELOPER, NURSING SALES APPOINTMENT COORDINATOR, AND HOSPITALIST NOTIFIED.
--- NOTE | 2021-03-09 13:40 | NUR ---
PT AT 0610 THIS MORNING, BEFORE SHIFT CHANGE. FAMILY AT BEDSIDE THIS MORNING. POST MORTUM CARE PROVIDED. PT WAS PICKED UP AT 1316.
== END 2021-03-09 13:28 | DRG 871 ==
LOC: ER 17:26 → PCU 21:43 → MEDS 03-05 16:45
PROVIDERS: Family Medicine; Nurse Practitioner Acute Care; Physician Assistant; ADMIT Internal Medicine
PROC: 8E0ZXY6 Isolation (ICD-10-PCS; principal; 2021-02-28)
PROC: 5A0955A Assistance with Respiratory Ventilation, Greater than 96 Consecutive Hours, High Flow/Velocity Cannula (ICD-10-PCS; 2021-02-28)
PROC: XW033E5 Introduction of Remdesivir Anti-infective into Peripheral Vein, Percutaneous Approach, New Technology Group 5 (ICD-10-PCS; 2021-02-28)
PROC: 3E0333Z Introduction of Anti-inflammatory into Peripheral Vein, Percutaneous Approach (ICD-10-PCS; 2021-02-28)
DX: A41.89 Other specified sepsis (principal); U07.1 COVID-19; J96.01 Acute respiratory failure with hypoxia; G92.8 Other toxic encephalopathy; J12.82 Pneumonia due to coronavirus disease 2019; F03.91 Unspecified dementia, unspecified severity, with behavioral disturbance; E87.0 Hyperosmolality and hypernatremia; R65.20 Severe sepsis without septic shock; I10 Essential (primary) hypertension; Z98.890 Other specified postprocedural states; Z66 Do not resuscitate; Z88.8 Allergy status to other drugs, medicaments and biological substances; Z79.899 Other long term (current) drug therapy; Z79.4 Long term (current) use of insulin; Z51.5 Encounter for palliative care; Z91.030 Bee allergy status; E11.40 Type 2 diabetes mellitus with diabetic neuropathy, unspecified; Z78.1 Physical restraint status
CPT/HCPCS: 0241U; 36415; 36600; 70450; 70551; 71045; 71260; 80047; 80053; 80069; 81001; 82140; 82803; 82947; 83605; 83735; 84133; 84145; 84300; 85014; 85025; 86140; 87040; 92526; 92610; 93005; 93010; 94660; 94762; 96374; 96375; 99285-25; A9270; C1751; J0248; J0295; J0456; J0696; J1100; J1650; J1815; J2060; J2270; J2930; J7042; J7050; Q9967